=== PATIENT | male | born 1975 | race Hispanic/Latino ===

== ENCOUNTER 2016-06-28 16:19 | Observation (INO) | payer MEDICAID ==
[2016-06-28 16:30] VITALS: BMI 25.0
--- NOTE | 2016-06-28 16:42 | ED PDOC ---
Arrival/HPI - General Historian: Patient - General Chief Complaint: Abnormal Skin Integrity Time Seen by Provider: 06/28/16 16:31 - History of Present Illness Narrative History of Present Illness (Text): 06/28/16 16:38 40yr old male presents today in police custody after running from the police and hopping a fence and falling. pt c/o pain to the anterior chest and right hand. pt states he fell forward from an approximate four foot fence. No loc. denies headache. c/o "bruised feeling" to anterior chest. pt states he did not have any pain or shortness of breath prior to fall. pt states he was running from the police because he had unpaid parking tickets. no abdominal pain. no vomiting. no back or neck pain. no other complaints. (Lily Pulido) Past Medical History - Provider Review Nursing Documentation Reviewed: Yes - Travel History Have you recently traveled outside [place] w/in the past 3 mons?: No - Tetanus Immunization Tetanus Immunization: Unknown - Cardiac Hx Cardiac Disorders: No - Pulmonary Hx Respiratory Disorders: No Hx Asthma: No - Neurological Hx Neurological Disorder: Yes (MR) - HEENT Hx HEENT Disorder: No - Renal Hx Renal Disorder: No - Endocrine/Metabolic Hx Endocrine Disorders: No - Hematological/Oncological Hx Blood Disorders: No - Integumentary Hx Dermatological Disorder: No - Musculoskeletal/Rheumatological Hx Musculoskeletal Disorders: No - Gastrointestinal Hx Gastrointestinal Disorders: No - Genitourinary/Gynecological Hx Genitourinary Disorders: No - Psychiatric Hx Psychophysiologic Disorder: No Hx Depression: No Hx Emotional Abuse: No Hx Physical Abuse: No Hx Substance Use: No (denies) - Anesthesia Hx Anesthesia: No - Suicidal Assessment Feels Threatened In Home Enviroment: No Family/Social History - Physician Review Nursing Documentation Reviewed: Yes Family/Social History: Unknown Family HX Smoking Status: Never Smoked Hx Alcohol Use: No (denies) Hx Substance Use: No (denies) Allergies/Home Meds Allergies/Adverse Reactions: Allergies No Known Allergies Allergy (Verified 06/28/16 16:30) Home Medications: Home Meds Medication Instructions Recorded Confirmed No Known Home Med 06/28/16 06/28/16 Review of Systems - Review of Systems Constitutional: absent: Fatigue, Fevers Respiratory: absent: SOB Cardiovascular: Chest Pain. absent: Palpitations Gastrointestinal: absent: Abdominal Pain, Nausea, Vomiting Genitourinary Male: absent: Dysuria Musculoskeletal: absent: Arthralgias, Back Pain, Neck Pain Skin: Laceration (palm of right hand) Neurological: absent: Headache, Dizziness Physical Exam Vital Signs Reviewed: Yes Temperature: Afebrile Blood Pressure: Hypertensive Pulse: Tachycardic Respiratory Rate: Normal Appearance: Positive for: Well-Appearing, Non-Toxic, Comfortable Pain Distress: None Mental Status: Positive for: Alert and Oriented X 3 - Systems Exam Head: Present: Atraumatic. No: Tenderness, Contusion Pupils: Present: PERRL Extroacular Muscles: Present: EOMI Mouth: Present: Moist Mucous Membranes Neck: Present: Normal Range of Motion. No: MIDLINE TENDERNESS, Paraspinal Tenderness Respiratory/Chest: Present: Clear to Auscultation, Good Air Exchange. No: Respiratory Distress, Accessory Muscle Use, Tender to Palpation Cardiovascular: Present: Regular Rate and Rhythm, Normal S1, S2. No: Murmurs Abdomen: No: Tenderness, Distention, Peritoneal Signs, Rebound, Guarding Back: Present: Normal Inspection. No: Midline Tenderness, Paraspinal Tenderness Upper Extremity: Present: Normal ROM, NORMAL PULSES, Neurovascularly Intact, Capillary Refill < 2s, Other (there is a 0.5cm linear superifical laceration to the palm of the hand over the area of the 2nd and 3rd metacarpals. no active bleeding.). No: Tenderness, Swelling, Erythema, Deformity Lower Extremity: Present: Normal ROM, Neurovascularly Intact Neurological: Present: GCS=15, Speech Normal, Motor Func Grossly Intact, Normal Sensory Function, Gait Normal Skin: Present: Warm, Dry Psychiatric: Present: Alert, Oriented x 3 Vital Signs Temp Pulse Resp BP Pulse Ox 06/28/16 21:54 72 16 129/80 96 06/28/16 18:39 98 F 79 20 143/91 H 98 06/28/16 18:00 94 H 18 123/80 97 06/28/16 17:57 96 H 06/28/16 16:35 99.1 F 130 H 18 130/87 97 06/28/16 16:30 99.1 F 132 H 16 150/87 97 Medical Decision Making ED Course and Treatment: I was available for consultation during PA evaluation. The chart was reviewed by me, and I agree with disposition. The documented history was done by the physician business account specialist. The documented physical exam was done by the physician business account specialist. The documented procedures were done by the physician business account specialist. ( Bentley Casey) 06/28/16 16:47 40yr old male with right hand pain/laceration and anterior chest pain s/p fall from fence. ekg; sinus tachycardia at 114b/m cxr: wnl right hand xray: no fracture, no foreign body. wound irrigated well with high pressure irrigation laceration repair; 2 sutures placed tetanus updated. cbc; wnl cmp; wnl troponin; wnl pt with slight expiratory wheeze; will given duoneb. pt c/o CP; will check 2 sets of troponin slight bump in 2nd troponin; 0.03 ASA GIVEN Po pt reassessment; pt non toxic well appearing; no distress. vitals improving. discussed all results with patient in depth; will admit observational status for CP with exertion; R/o ACS. hx of prior smoker. case discussed with dr. reid and dr. peraza. accepts tele obs admission. impression; chest pain, laceration, hand, tele obs; (Lily Pulido) - RAD Interpretation Radiology Orders: 06/28/16 16:37 CHEST PORTABLE [RAD] Stat 06/28/16 16:44 HAND RIGHT 3 VIEWS [RAD] Stat - Medication Orders Current Medication Orders: Aspirin (Aspirin) 325 mg PO DAILY DAVID Discontinued Medications Albuterol/Ipratropium (Duoneb 3 Mg/0.5 Mg (3 Ml) Ud) 3 ml IH STAT STA Stop: 06/28/16 18:01 Last Admin: 06/28/16 18:05 Dose: 3 ML Lidocaine HCl (Lidocaine 1% (20ml)) Confirm Administered Dose 20 ml .ROUTE .STK- MED ONE Stop: 06/28/16 17:05 Last Admin: 06/28/16 17:24 Dose: 3 ML Tetanus/Reduced Diphtheria/Acell Pertussis (Boostrix Vaccine Inj) 0.5 ml IM .ONCE ONE Stop: 06/28/16 16:44 Last Admin: 06/28/16 17:25 Dose: 0.5 ML MAR Immunization Data Document 06/28/16 17:25 GMI (Rec: 06/28/16 17:29 GMI [id number]) Immunization Data Informed Consent Given Yes Vaccine Lot Number [id number] Site Given Right Deltoid Route Intramuscular Immunization Units ml Procedure: Wound Repair - Procedure Procedure: Wound Repair: laceration, hand - Consent Obtained Consent obtained: Verbal - Performed by Performed by: Mid-level Provider - Indications Indication(s):: Laceration - Location Location:: Right, Volar, Hand Dimensions Length cm: 1cm Depth:: Epidermis - Anesthetic Technique Local/Regional Anesthetic:: Lidocaine 1% (1cc) - Debris Debris:: None - Irrigated Irrigated with ml of normal saline: copious amounts of NS using high pressure irrigation - Complexity Complexity:: Simple (one layer) - Wound repair method Sutures:: # (2), Size (5.0), Type (nylon), Technique (interrupted) - Complications Complications: none - Patient tolerated procedure Patient Tolerated Procedure:: Well ED OBSERVATION Date of observation admission: 06/28/16 Time of observation admission: 17:05 - Observation admission statement Patient is being placed in observation because:: pt with chest pain (Lily Pulido) - Goals of Observation Goals of observation are:: improvement in symptoms (Lily Pulido) - Progress Note Progress Note: 06/28/16 18:00: pt with slight cough in er. slight expiratory wheezing noted. will add duoneb 06/28/16 20:00 pt resting comfortably; vitals stable; pt denies any complaints. awaiting 2nd set of troponins. 06/28/16 22:24 pt with slight bump in troponin; will admit tele obs. with dry charge process attendant consult. (Lily Pulido) Disposition/Present on Arrival - Present on Arrival Any Indicators Present on Arrival: No History of DVT/PE: No History of Uncontrolled Diabetes: No Urinary Catheter: No History of Decub. Ulcer: No History Surgical Site Infection Following: None - Disposition Have Diagnosis and Disposition been Completed?: Yes Disposition Time: 22:25 Patient Plan: Discharge - Disposition Diagnosis: Chest pain Disposition: HOSPITALIZED Condition: GOOD
[2016-06-28] MEDS ORDERED: TDAP Vaccine 0.5 mL Syr IM ONE (16:43)
[2016-06-28] MEDS ORDERED: Lidocaine 1% Inj (20ml) ONE (17:04)
[2016-06-28 17:27] LABS: ADD MANUAL DIFF? NO
--- NOTE | 2016-06-28 17:27 | RAD ---
PROCEDURE: Right Hand Radiographs. HISTORY: fall/laceration COMPARISON: None. FINDINGS: BONES: Normal. No fracture. JOINTS: Normal. No osteoarthritic changes. SOFT TISSUES: Normal. OTHER FINDINGS: None. IMPRESSION: Normal right hand radiographs.
--- NOTE | 2016-06-28 17:29 | RAD ---
HISTORY: fall COMPARISON: 10/18/2013 FINDINGS: LUNGS: No active pulmonary disease. PLEURA: No significant pleural effusion identified, no pneumothorax apparent. CARDIOVASCULAR: Normal. OSSEOUS STRUCTURES: No significant abnormalities. VISUALIZED UPPER ABDOMEN: Normal. OTHER FINDINGS: None. IMPRESSION: No active disease.
[2016-06-28 17:36] LABS: BASO # 0.04 K/mm3 (0.0-2.0); BASO % 0.4 % (0.0-3.0); EOS # 0.1 (0.0-0.7); EOS % 1.2 % (1.5-5.0); GRAN # 8.68 (1.4-6.5); GRAN % 83.8 % (50.0-68.0); HEMATOCRIT 43.3 % (42.0-52.0); LYMPH % 9.8 % (22.0-35.0); MEAN CELL VOLUME 84.9 fL (80.0-105.0); MEAN CORPUSCULAR HGB CONC 35.3 g/dl (31.0-37.0); MEAN PLATELET VOLUME 9.4 fl (7.0-11.0); MONO # 0.5 (0.1-0.6); MONO % 4.8 % (1.0-6.0); PLATELET COUNT 191 10^3/uL (120.0-450.0); RED CELL DISTRIBUTION WIDTH 12.9 % (11.5-14.5); WHITE BLOOD COUNT 10.4 10^3/ul (4.5-11.0)
[2016-06-28 17:40] LABS: ALB/GLOB RATIO 1.5 (1.1-1.8); ALKALINE PHOSPHATASE 41 U/L (38-133); ALT/SGPT 50 U/L (7-56); AST/SGOT 41 U/L (15-59); BILIRUBIN,TOTAL 2.1 mg/dL (0.2-1.3); BLOOD UREA NITROGEN 17 mg/dL (7-21); CALCIUM 9.3 mg/dL (8.4-10.5); CARBON DIOXIDE 23 mmol/L (21-33); CHLORIDE 103 mmol/L (98-107); GFR AFRICAN-AMERICAN > 60; GLUCOSE,RANDOM 88 mg/dL (70-110); POTASSIUM 4.1 mmol/L (3.6-5.0); SODIUM 139 mmol/L (132-148); TOTAL PROTEIN 7.7 g/dL (5.8-8.3)
[2016-06-28] MEDS ORDERED: Albuterol-Ipratrop 3 mg / 0.5 (3 ml) UD IH STA (18:00)
[2016-06-28 18:03] LABS: TROPONIN I < 0.01 ng/mL
--- NOTE | 2016-06-28 22:27 | CP.PCM.HP ---
<Alonzo Fletcher - Last Filed: 06/28/16 22:23> History of Present Illness - History of Present Illness History of Present Illness: This is a 40 yo male with no past medical hx presenting with chief complaint chest pain x 1 day. He was pulled over by police. They found out he had suspended license. He left car and ran from police. While he was running, he began to feel chest pain. Substernal, no radiation, 6/10. Never felt this way before. Pain comes and goes. Not present at time of evaluation. Nothing makes it better or worse. Reproducible with palpation. Staying same, pressure sensation. Pt fell as he was running and hit his head and his right hand. Denies LOC. Denies fevers, chills, syncope, vomiting, diarrhea, urinary sx, bowel sx. PMH: None PSH: None Allergies: NKDA FH: Maternal aunt- [place]- age unknown at dx Home meds: none Social hx: Denies smoking. Social drinker. Past hx of cannabis use. Lives in [place] with GF. Does not work. Present on Admission - Present on Admission Any Indicators Present on Admission: No History of DVT/PE: No History of Uncontrolled Diabetes: No Urinary Catheter: No Decubitus Ulcer Present: No Review of Systems - Review of Systems All systems: reviewed and no additional remarkable complaints except Review of Systems: Negative except as stated in HPI. Past Patient History - Tetanus Immunizations Tetanus Immunization: Unknown - Past Medical History & Family History Past Medical History?: Yes Pertinent Family History: Maternal aunt - [place] - Past Social History Smoking Status: Former Smoker Chewing Tobacco Use: No Cigar Use: No Alcohol: Social Drugs: Cannabis Home Situation {Lives}: With Family Domestic Violence: Negative - CARDIAC Hx Cardiac Disorders: No - PULMONARY Hx Respiratory Disorders: No Hx Asthma: No - NEUROLOGICAL Hx Neurological Disorder: Yes (MR) - HEENT Hx HEENT Problems: No - RENAL Hx Chronic Kidney Disease: No - ENDOCRINE/METABOLIC Hx Endocrine Disorders: No - HEMATOLOGICAL/ONCOLOGICAL Hx Blood Disorders: No - INTEGUMENTARY Hx Dermatological Problems: No - MUSCULOSKELETAL/RHEUMATOLOGICAL Hx Musculoskeletal Disorders: No - GASTROINTESTINAL Hx Gastrointestinal Disorders: No - GENITOURINARY/GYNECOLOGICAL Hx Genitourinary Disorders: No - PSYCHIATRIC Hx Psychophysiologic Disorder: No Hx Depression: No Hx Emotional Abuse: No Hx Physical Abuse: No Hx Substance Use: No (denies) - SURGICAL HISTORY Hx Surgeries: No - ANESTHESIA Hx Anesthesia: No Meds Allergies/Adverse Reactions: Allergies Allergy/AdvReac Type Severity Reaction Status Date / Time No Known Allergies Allergy Verified 06/28/16 16:30 Physical Exam - Constitutional Appears: Non-toxic, No Acute Distress - Head Exam Head Exam: ATRAUMATIC, NORMAL INSPECTION, NORMOCEPHALIC - Eye Exam Eye Exam: EOMI - ENT Exam ENT Exam: Mucous Membranes Moist - Neck Exam Neck exam: Positive for: Normal Inspection - Respiratory Exam Respiratory Exam: Clear to Auscultation Bilateral, NORMAL BREATHING PATTERN - Cardiovascular Exam Cardiovascular Exam: REGULAR RHYTHM, +S1, +S2 Additional comments: CP reproducible to palpation - GI/Abdominal Exam GI & Abdominal Exam: Normal Bowel Sounds, Soft. absent: Tenderness - Extremities Exam Extremities exam: Positive for: normal inspection - Back Exam Back exam: NORMAL INSPECTION - Neurological Exam Neurological exam: Alert, Oriented x3 - Psychiatric Exam Psychiatric exam: Normal Affect, Normal Mood - Skin Skin Exam: Dry, Intact, Normal Color, Warm Results - Vital Signs Recent Vital Signs: Last Vital Signs Temp 98 F 06/28/16 18:39 Pulse 72 06/28/16 21:54 Resp 16 06/28/16 21:54 BP 129/80 06/28/16 21:54 Pulse Ox 96 06/28/16 21:54 - Labs Result Diagrams: 06/28/16 17:20 06/28/16 17:20 Labs: Laboratory Results - last 24 hr 06/28/16 06/28/16 17:20 21:20 WBC 10.4 D RBC 5.10 Hgb 15.3 Hct 43.3 MCV 84.9 MCH 30.0 MCHC 35.3 RDW 12.9 Plt Count 191 MPV 9.4 Gran % 83.8 H Lymph % (Auto) 9.8 L Morehouse % (Auto) 4.8 Eos % (Auto) 1.2 L Baso % (Auto) 0.4 Gran # 8.68 H Lymph # 1.0 L Morehouse # 0.5 Eos # 0.1 Baso # 0.04 Sodium 139 Potassium 4.1 Chloride 103 Carbon Dioxide 23 Anion Gap 17 BUN 17 Creatinine 1.0 Est GFR ( Amer) > 60 Est GFR (Non-Af Amer) > 60 Random Glucose 88 Calcium 9.3 Total Bilirubin 2.1 H AST 41 ALT 50 Alkaline Phosphatase 41 Lactate Dehydrogenase 503 Total Creatine Kinase 87 Troponin I < 0.01 0.03 D Total Protein 7.7 Albumin 4.6 Globulin 3.1 Albumin/Globulin Ratio 1.5 Assessment & Plan - Assessment and Plan (Free Text) Assessment: This is a 40 yo male with no past medical hx presenting with chest pain x 1 day 1. Chest pain, r/o ACS -serial ekgs -serial troponins, first .01, second .03 -CXR negative -asa 81 daily -lipid panel -hgb a1c -mg/phos -urine drug screen pending -pt hemodynamically stable 2. Hand pain -hand x ray negative 3. GI/DVT ppx -protonix daily -SCDs <Kierra Boles - Last Filed: 06/29/16 22:53> Results - Vital Signs Recent Vital Signs: Last Vital Signs Temp 98.5 F 06/29/16 18:00 Pulse 74 06/29/16 18:00 Resp 20 06/29/16 18:00 BP 136/83 06/29/16 18:00 Pulse Ox 96 06/29/16 05:46 - Labs Result Diagrams: 06/29/16 07:42 06/29/16 07:42 Labs: Laboratory Results - last 24 hr 06/28/16 06/28/16 06/29/16 21:20 22:37 07:42 WBC 8.1 D RBC 4.89 Hgb 14.5 Hct 41.7 L MCV 85.3 MCH 29.7 MCHC 34.8 RDW 13.1 Plt Count 167 MPV 9.3 Gran % 67.8 Lymph % (Auto) 21.6 L Morehouse % (Auto) 7.7 H Eos % (Auto) 2.5 Baso % (Auto) 0.4 Gran # 5.50 Lymph # 1.8 Morehouse # 0.6 Eos # 0.2 Baso # 0.03 Sodium 141 Potassium 3.7 Chloride 102 Carbon Dioxide 28 Anion Gap 15 BUN 18 Creatinine 0.9 Est GFR ( Amer) > 60 Est GFR (Non-Af Amer) > 60 Random Glucose 97 Calcium 8.7 Total Bilirubin 3.3 H Direct Bilirubin 0.7 H AST 38 ALT 46 Alkaline Phosphatase 44 Troponin I 0.04 D Total Protein 7.1 Albumin 4.1 Globulin 3.0 Albumin/Globulin Ratio 1.4 Triglycerides 50 Cholesterol 105 L LDL Cholesterol Direct 46 HDL Cholesterol 38 Urine Opiates Screen Negative Urine Methadone Screen Negative Ur Barbiturates Screen Negative Ur Phencyclidine Scrn Negative Ur Amphetamines Screen Negative U Benzodiazepines Scrn Negative U Oth Cocaine Metabols Negative U Cannabinoids Screen Negative 06/29/16 06/29/16 12:25 14:45 WBC RBC Hgb Hct MCV MCH MCHC RDW Plt Count MPV Gran % Lymph % (Auto) Morehouse % (Auto) Eos % (Auto) Baso % (Auto) Gran # Lymph # Morehouse # Eos # Baso # Sodium Potassium Chloride Carbon Dioxide Anion Gap BUN Creatinine Est GFR ( Amer) Est GFR (Non-Af Amer) Random Glucose Calcium Total Bilirubin Direct Bilirubin AST ALT Alkaline Phosphatase Troponin I < 0.01 D < 0.01 Total Protein Albumin Globulin Albumin/Globulin Ratio Triglycerides Cholesterol LDL Cholesterol Direct HDL Cholesterol Urine Opiates Screen Urine Methadone Screen Ur Barbiturates Screen Ur Phencyclidine Scrn Ur Amphetamines Screen U Benzodiazepines Scrn U Oth Cocaine Metabols U Cannabinoids Screen Attending/Attestation - Attestation I have personally seen and examined this patient.: Yes I have fully participated in the care of the patient.: Yes I have reviewed all pertinent clinical information: Yes Notes (Text): 06/29/16 22:53 Patient was seen when he was in PES room in the ER. Agree with history , physical examination ,assessment and plan.
[2016-06-28 22:39] LABS: BILIRUBIN,DIRECT 0.7 mg/dL (0.0-0.4)
[2016-06-29 05:47] VITALS: O2SAT 96
[2016-06-29] MEDS ORDERED: Pantoprazole 40 mg EC Tab PO SCH (06:30)
[2016-06-29 07:44] LABS: ADD MANUAL DIFF? NO
[2016-06-29 07:49] LABS: BASO # 0.03 K/mm3 (0.0-2.0); BASO % 0.4 % (0.0-3.0); EOS # 0.2 (0.0-0.7); EOS % 2.5 % (1.5-5.0); GRAN % 67.8 % (50.0-68.0); HEMATOCRIT 41.7 % (42.0-52.0); LYMPH # 1.8 (1.2-3.4); LYMPH % 21.6 % (22.0-35.0); MEAN CELL VOLUME 85.3 fL (80.0-105.0); MEAN CORPUSCULAR HEMOGLOBIN 29.7 pg (25.0-35.0); MEAN CORPUSCULAR HGB CONC 34.8 g/dl (31.0-37.0); MEAN PLATELET VOLUME 9.3 fl (7.0-11.0); MONO # 0.6 (0.1-0.6); MONO % 7.7 % (1.0-6.0); PLATELET COUNT 167 10^3/uL (120.0-450.0); RED CELL DISTRIBUTION WIDTH 13.1 % (11.5-14.5); WHITE BLOOD COUNT 8.1 10^3/ul (4.5-11.0)
[2016-06-29 08:02] LABS: ALB/GLOB RATIO 1.4 (1.1-1.8); ALKALINE PHOSPHATASE 44 U/L (38-133); ALT/SGPT 46 U/L (7-56); AST/SGOT 38 U/L (15-59); BILIRUBIN,TOTAL 3.3 mg/dL (0.2-1.3); BLOOD UREA NITROGEN 18 mg/dL (7-21); CALCIUM 8.7 mg/dL (8.4-10.5); CARBON DIOXIDE 28 mmol/L (21-33); CHLORIDE 102 mmol/L (98-107); GFR AFRICAN-AMERICAN > 60; GLUCOSE,RANDOM 97 mg/dL (70-110); POTASSIUM 3.7 mmol/L (3.6-5.0); SODIUM 141 mmol/L (132-148); TOTAL PROTEIN 7.1 g/dL (5.8-8.3)
[2016-06-29 08:12] LABS: TROPONIN I 0.04 ng/mL
--- NOTE | 2016-06-29 12:13 | CARD ---
APPROVED REPORT EKG Measurement Heart [id number] NM [id number] <Conclusion> Normal sinus rhythm Early repolarization Normal ECG
--- NOTE | 2016-06-29 12:18 | CARD ---
APPROVED REPORT EKG Measurement Heart [id number] SD [id number] <Conclusion> Sinus tachycardia Otherwise normal ECG
--- NOTE | 2016-06-29 13:08 | CP.PCM.DIS ---
<Kailyn Gale - Last Filed: 07/03/16 02:42> Provider - Provider Date of Admission: 06/28/16 17:04 Attending physician: Surinder Tyson MD Primary care physician: NO PRIMARY CARE PROVIDER Consults: Cardiology Dr. Renee Time Spent in preparation of Discharge (in minutes): 40 Diagnosis - Discharge Diagnosis (1) Chest pain Status: Resolved Hospital Course - Lab Results Lab Results: Most Recent Lab Values WBC 8.1 10^3/ul (4.5-11.0) D 06/29/16 07:42 RBC 4.89 10^6/uL (3.5-6.1) 06/29/16 07:42 Hgb 14.5 gm/dL (14.0-18.0) 06/29/16 07:42 Hct 41.7 % (42.0-52.0) L 06/29/16 07:42 MCV 85.3 fL (80.0-105.0) 06/29/16 07:42 MCH 29.7 pg (25.0-35.0) 06/29/16 07:42 MCHC 34.8 g/dl (31.0-37.0) 06/29/16 07:42 RDW 13.1 % (11.5-14.5) 06/29/16 07:42 Plt Count 167 10^3/uL (120.0-450.0) 06/29/16 07:42 MPV 9.3 fl (7.0-11.0) 06/29/16 07:42 Gran % 67.8 % (50.0-68.0) 06/29/16 07:42 Lymph % (Auto) 21.6 % (22.0-35.0) L 06/29/16 07:42 [place] % (Auto) 7.7 % (1.0-6.0) H 06/29/16 07:42 Eos % (Auto) 2.5 % (1.5-5.0) 06/29/16 07:42 Baso % (Auto) 0.4 % (0.0-3.0) 06/29/16 07:42 Gran # 5.50 (1.4-6.5) 06/29/16 07:42 Lymph # 1.8 (1.2-3.4) 06/29/16 07:42 [place] # 0.6 (0.1-0.6) 06/29/16 07:42 Eos # 0.2 (0.0-0.7) 06/29/16 07:42 Baso # 0.03 K/mm3 (0.0-2.0) 06/29/16 07:42 Sodium 141 mmol/L (132-148) 06/29/16 07:42 Potassium 3.7 mmol/L (3.6-5.0) 06/29/16 07:42 Chloride 102 mmol/L (98-107) 06/29/16 07:42 Carbon Dioxide 28 mmol/L (21-33) 06/29/16 07:42 Anion Gap 15 (10-20) 06/29/16 07:42 BUN 18 mg/dL (7-21) 06/29/16 07:42 Creatinine 0.9 mg/dL (0.5-1.4) 06/29/16 07:42 Est GFR ( Amer) > 60 06/29/16 07:42 Est GFR (Non-Af Amer) > 60 06/29/16 07:42 Random Glucose 97 mg/dL (70-110) 06/29/16 07:42 Calcium 8.7 mg/dL (8.4-10.5) 06/29/16 07:42 Total Bilirubin 3.3 mg/dL (0.2-1.3) H 06/29/16 07:42 Direct Bilirubin 0.7 mg/dL (0.0-0.4) H 06/28/16 21:20 AST 38 U/L (15-59) 06/29/16 07:42 ALT 46 U/L (7-56) 06/29/16 07:42 Alkaline Phosphatase 44 U/L (38-133) 06/29/16 07:42 Lactate Dehydrogenase 503 U/L (333-699) 06/28/16 17:20 Total Creatine Kinase 87 U/L (35-230) 06/28/16 17:20 Troponin I < 0.01 ng/mL D 06/29/16 12:25 Total Protein 7.1 g/dL (5.8-8.3) 06/29/16 07:42 Albumin 4.1 g/dL (3.0-4.8) 06/29/16 07:42 Globulin 3.0 gm/dL 06/29/16 07:42 Albumin/Globulin Ratio 1.4 (1.1-1.8) 06/29/16 07:42 Triglycerides 50 mg/dL (35-160) 06/28/16 21:20 Cholesterol 105 mg/dL (130-200) L 06/28/16 21:20 LDL Cholesterol Direct 46 mg/dL (0-129) 06/28/16 21:20 HDL Cholesterol 38 mg/dL (29-60) 06/28/16 21:20 Urine Opiates Screen Negative (NEGATIVE) 06/28/16 22:37 Urine Methadone Screen Negative (NEGATIVE) 06/28/16 22:37 Ur Barbiturates Screen Negative (NEGATIVE) 06/28/16 22:37 Ur Phencyclidine Scrn Negative (NEGATIVE) 06/28/16 22:37 Ur Amphetamines Screen Negative (NEGATIVE) 06/28/16 22:37 U Benzodiazepines Scrn Negative (NEGATIVE) 06/28/16 22:37 U Oth Cocaine Metabols Negative (NEGATIVE) 06/28/16 22:37 U Cannabinoids Screen Negative (NEGATIVE) 06/28/16 22:37 - Hospital Course Hospital Course: 40 yo male with no past medical hx presenting with chief complaint chest pain x 1 day. He was pulled over by police. They found out he had suspended license. He left car and ran from police. While he was running, he began to feel chest pain. Substernal, no radiation, 6/10. Never felt this way before. Pain comes and goes. Not present at time of evaluation. Nothing makes it better or worse. Reproducible with palpation. Staying same, pressure sensation. Pt fell as he was running and hit his head and his right hand. Denies LOC. Denies fevers, chills, syncope, vomiting, diarrhea, urinary sx, bowel sx. In the ED, patient was found to have troponin of 0.01 and 0.03 on repeat. EKG showed NSR at 68bpm with no ST changes. Right hand laceration repaired with 2 sutures. Patient was admitted for CP r/o ACS due to increase troponin. Upon admission, patient was started on ASA. Overnight patient's chest pain improved. Patient's vitals were stable, troponins remain negative. Cardiology was consulted and suggested that patient does not have ACS. Police at bedside were given note of clearance for incarceration. Upon informing patient of negative results, patient starting complaining of shortness of breath, nausea, coughs and, chest pain. Toradol was given. EKG, troponin were performed and they were negative. At this time, after discussion of all issues, the patient was deemed medically fit for discharge. - Date & Time of H&P Date of H&P: 06/28/16 Time of H&P: 22:23 Discharge Exam - Head Exam Head Exam: ATRAUMATIC, NORMAL INSPECTION, NORMOCEPHALIC - Eye Exam Eye Exam: EOMI, Normal appearance Pupil Exam: NORMAL ACCOMODATION - ENT Exam ENT Exam: Mucous Membranes Moist - Neck Exam Neck exam: Normal Inspection - Respiratory Exam Respiratory Exam: Clear to PA & Lateral, NORMAL BREATHING PATTERN, UNREMARKABLE. absent: Respiratory Distress - Cardiovascular Exam Cardiovascular Exam: Tachycardia, RRR, +S1, +S2 - GI/Abdominal Exam GI & Abdominal Exam: Normal Bowel Sounds, Soft. absent: Tenderness - Extremities Exam Extremities exam: normal inspection - Back Exam Back exam: NORMAL INSPECTION - Neurological Exam Neurological exam: Alert, Oriented x3 - Psychiatric Exam Psychiatric exam: Normal Affect, Normal Mood - Skin Skin Exam: Dry, Intact, Normal Color, Warm Discharge Plan - Follow Up Plan Condition: GOOD Disposition: RELEASED IN POLICE CUSTODY Instructions: Chest Pain (ED), Chest Pain (DC), Chest Pain (GEN) Additional Instructions: Patient was instructed to follow up with a medical provider Patient was evaluated by salon assistant and cardiology workup has been negative Patient is medically cleared for incarceration Referrals: PCP,NO [Primary Care Provider] - <Surinder Tyson MD - Last Filed: 07/07/16 14:47> Provider - Provider Date of Admission: 06/28/16 17:04 Attending physician: Surinder Tyson MD Primary care physician: KAYKAY PRIMARY CARE PROVIDER Hospital Course - Lab Results Lab Results: Most Recent Lab Values WBC 8.1 10^3/ul (4.5-11.0) D 06/29/16 07:42 RBC 4.89 10^6/uL (3.5-6.1) 06/29/16 07:42 Hgb 14.5 gm/dL (14.0-18.0) 06/29/16 07:42 Hct 41.7 % (42.0-52.0) L 06/29/16 07:42 MCV 85.3 fL (80.0-105.0) 06/29/16 07:42 MCH 29.7 pg (25.0-35.0) 06/29/16 07:42 MCHC 34.8 g/dl (31.0-37.0) 06/29/16 07:42 RDW 13.1 % (11.5-14.5) 06/29/16 07:42 Plt Count 167 10^3/uL (120.0-450.0) 06/29/16 07:42 MPV 9.3 fl (7.0-11.0) 06/29/16 07:42 Gran % 67.8 % (50.0-68.0) 06/29/16 07:42 Lymph % (Auto) 21.6 % (22.0-35.0) L 06/29/16 07:42 [place] % (Auto) 7.7 % (1.0-6.0) H 06/29/16 07:42 Eos % (Auto) 2.5 % (1.5-5.0) 06/29/16 07:42 Baso % (Auto) 0.4 % (0.0-3.0) 06/29/16 07:42 Gran # 5.50 (1.4-6.5) 06/29/16 07:42 Lymph # 1.8 (1.2-3.4) 06/29/16 07:42 [place] # 0.6 (0.1-0.6) 06/29/16 07:42 Eos # 0.2 (0.0-0.7) 06/29/16 07:42 Baso # 0.03 K/mm3 (0.0-2.0) 06/29/16 07:42 Sodium 141 mmol/L (132-148) 06/29/16 07:42 Potassium 3.7 mmol/L (3.6-5.0) 06/29/16 07:42 Chloride 102 mmol/L (98-107) 06/29/16 07:42 Carbon Dioxide 28 mmol/L (21-33) 06/29/16 07:42 Anion Gap 15 (10-20) 06/29/16 07:42 BUN 18 mg/dL (7-21) 06/29/16 07:42 Creatinine 0.9 mg/dL (0.5-1.4) 06/29/16 07:42 Est GFR ( Amer) > 60 06/29/16 07:42 Est GFR (Non-Af Amer) > 60 06/29/16 07:42 Random Glucose 97 mg/dL (70-110) 06/29/16 07:42 Hemoglobin A1c 5.0 % (4.2-6.5) 06/28/16 21:20 Calcium 8.7 mg/dL (8.4-10.5) 06/29/16 07:42 Total Bilirubin 3.3 mg/dL (0.2-1.3) H 06/29/16 07:42 Direct Bilirubin 0.7 mg/dL (0.0-0.4) H 06/28/16 21:20 AST 38 U/L (15-59) 06/29/16 07:42 ALT 46 U/L (7-56) 06/29/16 07:42 Alkaline Phosphatase 44 U/L (38-133) 06/29/16 07:42 Lactate Dehydrogenase 503 U/L (333-699) 06/28/16 17:20 Total Creatine Kinase 87 U/L (35-230) 06/28/16 17:20 Troponin I < 0.01 ng/mL 06/29/16 14:45 Total Protein 7.1 g/dL (5.8-8.3) 06/29/16 07:42 Albumin 4.1 g/dL (3.0-4.8) 06/29/16 07:42 Globulin 3.0 gm/dL 06/29/16 07:42 Albumin/Globulin Ratio 1.4 (1.1-1.8) 06/29/16 07:42 Triglycerides 50 mg/dL (35-160) 06/28/16 21:20 Cholesterol 105 mg/dL (130-200) L 06/28/16 21:20 LDL Cholesterol Direct 46 mg/dL (0-129) 06/28/16 21:20 HDL Cholesterol 38 mg/dL (29-60) 06/28/16 21:20 Urine Opiates Screen Negative (NEGATIVE) 06/28/16 22:37 Urine Methadone Screen Negative (NEGATIVE) 06/28/16 22:37 Ur Barbiturates Screen Negative (NEGATIVE) 06/28/16 22:37 Ur Phencyclidine Scrn Negative (NEGATIVE) 06/28/16 22:37 Ur Amphetamines Screen Negative (NEGATIVE) 06/28/16 22:37 U Benzodiazepines Scrn Negative (NEGATIVE) 06/28/16 22:37 U Oth Cocaine Metabols Negative (NEGATIVE) 06/28/16 22:37 U Cannabinoids Screen Negative (NEGATIVE) 06/28/16 22:37 Attending/Attestation - Attestation I have personally seen and examined this patient.: Yes I have fully participated in the care of the patient.: Yes I have reviewed all pertinent clinical information, including history, physical exam and plan: Yes Notes (Text): Patient was seen and examined with general medical practitioner.Agreed with assessment and plan. 40 yo male with no significant PMH with atypical chest pain, has chest wall tendernes, EKG no ischemic changes, serial troponins are normal.Patient was evaluated by cardiology, no further work up is needed.Patient will be discharged from hospital and will follow up with [facility] clinic once released from Police custody or can follow up with doctor in long-term, Management plan was discussed in detail with patient. Education was provided.
--- NOTE | 2016-06-29 18:33 | CON ---
DATE: 06/29/2016 REASON FOR CONSULTATION: Cardiac evaluation for chest pain, cough, in police custody. BRIEF CLINICAL HISTORY: This is a 40-year-old male with no significant past medical history who says he was in police custody and was chased. After that the patient developed chest pain and cough. Wa s brought here under police custody. Denies any prior episodes of chest pain. No dyspnea on exerti on. 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 PAST MEDICAL HISTORY: Nothing significant. CURRENT MEDICATIONS: . FAMILY HISTORY: No history of coronary artery disease. PAST SURGICAL HISTORY: No surgical history. SOCIAL HISTORY: Denies smoking, denies any history of alcohol abuse, denies any history of substance abuse. REVIEW OF SYSTEMS: As per HPI. PHYSICAL EXAMINATION: VITAL SIGNS: Temperature afebrile, heart rate 72, blood pressure 130/80. HEENT: PERRLA. Extraocular muscles intact. NECK: Supple. No carotid bruits. No thyromegaly. CHEST: Clear to auscultation. HEART: S1, S2 regular. ABDOMEN: Soft. EXTREMITIES: Clubbing and cyanosis negative. LABORATORY DATA: Blood workup as follows: WBC 8.1, hemoglobin 14.5, hematocrit 41.7, platelet count 167. Chemistry shows sodium 141, potassium 3.7, chloride 102, carbon dioxide 28, anion gap of 15, B UN 18, creatinine 0.9, calcium 8.7, total bilirubin 3.3. Troponin 0.01. IMPRESSION: Hyperbilirubinemia, cough and troponin negative. No evidence of acute myocardial infarc tion. EKG showed normal sinus, a normal EKG. No evidence of acute myocardial infarction, no evidenc e of acute coronary syndrome. is stable. From a cardiology point of view, the patient is stab le. No further cardiac workup is planned at this time. We will follow with you. Thank you, Dr. Tim, for providing us the opportunity in taking care of the patient. The patient is okay to discharge from a cardiac point of view. Surinder Renee MD cc: [id number] TT: 06/29/2016 18:33:12 Confirmation # [id number] Dictation # [id number]
[2016-06-29 19:15] VITALS: BP 136/83; PULSE 74; RESP 20; TEMP 98.5
--- NOTE | 2016-06-30 16:34 | CARD ---
APPROVED REPORT EKG Measurement Heart [id number] <Conclusion> Normal sinus rhythm Normal ECG
== END 2016-06-29 20:00 | disposition home or self-care (01) ==
LOC: ED 16:19 → EROBSV 17:04 → ERH 22:21 → 2RNO 22:40
PROVIDERS: ADMIT Internal Medicine; ATTEND Internal Medicine
DX: R07.9 Chest pain, unspecified (principal); R05 Cough; M79.641 Pain in right hand; S61.411A Laceration without foreign body of right hand, initial encounter; W19.XXXA Unspecified fall, initial encounter; Y93.02 Activity, running; Z23 Encounter for immunization; E80.6 Other disorders of bilirubin metabolism
CPT/HCPCS: 12001; 36415; 71010; 73130; 80053; 80061; 80324; 80345; 80346; 80349; 80353; 80358; 80361; 82248; 82550; 83036; 83615; 83992; 84484; 85025; 90471; 90715; 93005; 99285; G0378

== ENCOUNTER 2016-07-04 02:52 | Emergency (ER) | payer MEDICAID ==
--- NOTE | 2016-07-04 03:38 | ED PDOC ---
Arrival/HPI - General Historian: Patient - History of Present Illness Time/Duration: > week Symptom Course: Improving <Kailyn Gale - Last Filed: 07/04/16 03:55> - History of Present Illness Symptom Onset: Sudden Severity Level: Mild <Lex Elliott - Last Filed: 07/04/16 04:22> - General Chief Complaint: Wound Check Time Seen by Provider: 07/04/16 03:01 - History of Present Illness Narrative History of Present Illness (Text): 07/04/16 03:31 40 year old male with no significant past medical history presents to [facility] ED to have his left palm suture removed. Patient sustain a 2 cm laceration in his left palmar surface on 06/28/16. Patient came to the ED and had 2 sutures placed. Patient does not have any current complaints. Denies having headache, fever, chills, shortness of breath, chest pain, nausea, vomiting, constipation or diarrhea. (Kailyn Gale) Past Medical History - Provider Review Nursing Documentation Reviewed: Yes - Tetanus Immunization Tetanus Immunization: Unknown - Cardiac Hx Cardiac Disorders: No - Pulmonary Hx Respiratory Disorders: No Hx Asthma: No - Neurological Hx Neurological Disorder: Yes (MR) - HEENT Hx HEENT Disorder: No - Renal Hx Renal Disorder: No - Endocrine/Metabolic Hx Endocrine Disorders: No - Hematological/Oncological Hx Blood Disorders: No - Integumentary Hx Dermatological Disorder: No - Musculoskeletal/Rheumatological Hx Musculoskeletal Disorders: No - Gastrointestinal Hx Gastrointestinal Disorders: No - Genitourinary/Gynecological Hx Genitourinary Disorders: No - Psychiatric Hx Psychophysiologic Disorder: No Hx Depression: No Hx Emotional Abuse: No Hx Physical Abuse: No Hx Substance Use: No (denies) - Anesthesia Hx Anesthesia: No - Suicidal Assessment Feels Threatened In Home Enviroment: No <Kailyn Gale - Last Filed: 07/04/16 03:55> Family/Social History - Physician Review Nursing Documentation Reviewed: Yes Family/Social History: No Known Family HX Smoking Status: Never Smoked Hx Alcohol Use: No (denies) Hx Substance Use: No (denies) <Kailyn Gale - Last Filed: 07/04/16 03:55> Allergies/Home Meds <Kailyn Gale - Last Filed: 07/04/16 03:55> <Lex Elliott - Last Filed: 07/04/16 04:22> Allergies/Adverse Reactions: Allergies No Known Allergies Allergy (Verified 06/28/16 16:30) Home Medications: Home Meds Medication Instructions Recorded Confirmed No Known Home Med 06/28/16 06/28/16 Review of Systems - Physician Review All systems were reviewed & negative as marked: Yes - Review of Systems Constitutional: Normal. absent: Fatigue, Weight Change, Fevers Eyes: Normal. absent: Vision Changes ENT: Normal Respiratory: Normal. absent: SOB, Cough, Sputum Cardiovascular: Normal. absent: Chest Pain, Palpitations, Syncope Gastrointestinal: Normal. absent: Constipation, Diarrhea, Nausea, Vomiting, Anorexia Musculoskeletal: Normal. absent: Back Pain Skin: Other (suture on left hand) Neurological: Normal. absent: Headache, Dizziness Endocrine: Normal. absent: Diaphoresis, Polyuria Hemo/Lymphatic: Normal. absent: Adenopathy, Easy Bleeding, Easy Bruising Psychiatric: Normal. absent: Anxiety, Depression, Suicidal Ideation <Kailyn Gale - Last Filed: 07/04/16 03:55> Physical Exam Vital Signs Reviewed: Yes Temperature: Afebrile Blood Pressure: Normal Pulse: Regular Respiratory Rate: Normal Appearance: Positive for: Well-Appearing, Non-Toxic, Comfortable Pain Distress: None Mental Status: Positive for: Alert and Oriented X 3 - Systems Exam Head: Present: Atraumatic, Normocephalic Pupils: Present: PERRL Extroacular Muscles: Present: EOMI Conjunctiva: Present: Normal Mouth: Present: Moist Mucous Membranes Neck: Present: Normal Range of Motion Respiratory/Chest: Present: Clear to Auscultation, Good Air Exchange. No: Respiratory Distress, Accessory Muscle Use Cardiovascular: Present: Regular Rate and Rhythm, Normal S1, S2. No: Murmurs Abdomen: Present: Normal Bowel Sounds. No: Tenderness, Distention, Peritoneal Signs Back: Present: Normal Inspection Upper Extremity: Present: NORMAL PULSES. No: Normal Inspection (2cm healing wound with 2 sutures placed on left palmar surface. Clean, Dry, no signs of infection), Cyanosis, Edema Lower Extremity: Present: Normal Inspection. No: Edema Neurological: Present: GCS=15, CN II-XII Intact, Speech Normal Skin: Present: Warm, Dry, Normal Color. No: Rashes Psychiatric: Present: Alert, Oriented x 3, Normal Insight, Normal Concentration <Kailyn Gale - Last Filed: 07/04/16 03:55> Vital Signs Temp Pulse Resp BP Pulse Ox 07/04/16 04:16 98.6 F 70 17 128/70 100 07/04/16 02:55 97.5 F L 66 19 130/76 99 Medical Decision Making <Kailyn Gale - Last Filed: 07/04/16 03:55> <Lex Elliott - Last Filed: 07/04/16 04:22> ED Course and Treatment: 07/04/16 03:43 -sutures removed without complications -Bacitracin and band-aid applied -Reassess 07/04/16 03:50 -Patient has no complaints (Kailyn Gale) 07/04/16 04:20 Patient seen and evaluated with resident. Agree with HPI, clinical findings, plan and treatment. Patient is a 40 year old male who presents to the emergency department for suture removal on left palm which was placed on 06/28/16. The 2cm healing wound with no signs of infection. Sutures removed without any complications. Patient discharged home after Bacitracin and band-aid application. (Lex Elliott) <Kailyn Gale - Last Filed: 07/04/16 03:55> - PA / CONSTRUCTION PROJECT MANAGER / Resident Statement / has reviewed & agrees with the documentation as recorded. / has examined the patient and agrees with the treatment plan. <Lex Elliott - Last Filed: 07/04/16 04:22> - Scribe Statement Judy Levy Provider Scribe Attestation: All medical record entries made by the Scribe were at my direction and personally dictated by me. I have reviewed the chart and agree that the record accurately reflects my personal performance of the history, physical exam, medical decision making, and the department course for this patient. I have also personally directed, reviewed, and agree with the discharge instructions and disposition. (Lex Elliott) Disposition/Present on Arrival - Present on Arrival Any Indicators Present on Arrival: No History of DVT/PE: No History of Uncontrolled Diabetes: No Urinary Catheter: No History of Decub. Ulcer: No History Surgical Site Infection Following: None - Disposition Have Diagnosis and Disposition been Completed?: Yes Disposition Time: 03:56 <Kailyn Gale - Last Filed: 07/04/16 03:55> <Lex Elliott - Last Filed: 07/04/16 04:22> - Disposition Diagnosis: Visit for suture removal Disposition: HOME/ ROUTINE Condition: GOOD Discharge Instructions (ExitCare): Stitches Removal (ED)
[2016-07-04 04:17] VITALS: BP 128/70; PULSE 70; RESP 17; TEMP 98.6; O2SAT 100
== END 2016-07-04 04:17 | disposition home or self-care (01) ==
LOC: ED 02:52
DX: Z48.02 Encounter for removal of sutures (principal)

== ENCOUNTER 2016-11-13 04:24 | Emergency (ER) | payer MEDICAID ==
[2016-11-13 04:35] VITALS: BP 141/89; PULSE 60; TEMP 98.4; O2SAT 99
[2016-11-13 04:36] VITALS: RESP 18
--- NOTE | 2016-11-13 04:45 | ED PDOC ---
Arrival/HPI - General Chief Complaint: Dental Pain Time Seen by Provider: 11/13/16 04:38 Historian: Patient - History of Present Illness Narrative History of Present Illness (Text): 11/13/16 04:45 Renny Garcia is a 41 year old male who presents to the Emergency department complaining of dental pain. Patient reports he has been experiencing right lower molar pain after cracking the filling yesterday. Patient denies any fever, chills, sore throat, headache, or any other complaints. Time/Duration: Other (yesterday) Symptom Onset: Gradual Symptom Course: Unchanged Activities at Onset: Light Context: Home Past Medical History - Provider Review Nursing Documentation Reviewed: Yes - Tetanus Immunization Tetanus Immunization: Unknown - Cardiac Hx Cardiac Disorders: No - Pulmonary Hx Respiratory Disorders: No Hx Asthma: No - Neurological Hx Neurological Disorder: Yes (MR) - HEENT Hx HEENT Disorder: No - Renal Hx Renal Disorder: No - Endocrine/Metabolic Hx Endocrine Disorders: No - Hematological/Oncological Hx Blood Disorders: No - Integumentary Hx Dermatological Disorder: No - Musculoskeletal/Rheumatological Hx Musculoskeletal Disorders: No - Gastrointestinal Hx Gastrointestinal Disorders: No - Genitourinary/Gynecological Hx Genitourinary Disorders: No - Psychiatric Hx Psychophysiologic Disorder: No Hx Depression: No Hx Emotional Abuse: No Hx Physical Abuse: No Hx Substance Use: No (denies) - Anesthesia Hx Anesthesia: No - Suicidal Assessment Feels Threatened In Home Enviroment: No Family/Social History - Physician Review Nursing Documentation Reviewed: Yes Family/Social History: Unknown Family HX Smoking Status: Never Smoked Hx Alcohol Use: No (denies) Hx Substance Use: No (denies) Allergies/Home Meds Allergies/Adverse Reactions: Allergies No Known Allergies Allergy (Verified 11/13/16 04:35) Review of Systems - Physician Review All systems were reviewed & negative as marked: Yes - Review of Systems Constitutional: Normal. absent: Fevers Eyes: Normal ENT: Other (+right lower molar pain) Respiratory: Normal. absent: SOB, Cough Cardiovascular: Normal. absent: Chest Pain Gastrointestinal: Normal. absent: Abdominal Pain, Diarrhea, Nausea, Vomiting Genitourinary Male: Normal. absent: Dysuria, Frequency, Hematuria, Urinary Output Changes Musculoskeletal: Normal. absent: Back Pain, Neck Pain Skin: Normal. absent: Rash Neurological: Normal. absent: Headache, Dizziness Endocrine: Normal Hemo/Lymphatic: Normal Psychiatric: Normal Physical Exam Vital Signs Reviewed: Yes Vital Signs Temp Pulse Resp BP Pulse Ox 11/13/16 04:35 98.4 F 60 18 141/89 99 11/13/16 04:31 98.4 F 60 20 141/89 99 Temperature: Afebrile Blood Pressure: Normal Pulse: Regular Respiratory Rate: Normal Appearance: Positive for: Well-Appearing, Non-Toxic, Comfortable Pain Distress: None Mental Status: Positive for: Alert and Oriented X 3 - Systems Exam Head: Present: Atraumatic, Normocephalic Pupils: Present: PERRL Extroacular Muscles: Present: EOMI Conjunctiva: Present: Normal Mouth: Present: Moist Mucous Membranes, Other (Partial loss of amalgam to right lower posterior molar) Neck: Present: Normal Range of Motion Respiratory/Chest: Present: Clear to Auscultation, Good Air Exchange. No: Respiratory Distress, Accessory Muscle Use Cardiovascular: Present: Regular Rate and Rhythm, Normal S1, S2. No: Murmurs Neurological: Present: GCS=15, CN II-XII Intact, Speech Normal Skin: Present: Warm, Dry, Normal Color. No: Rashes Psychiatric: Present: Alert, Oriented x 3, Normal Insight, Normal Concentration Medical Decision Making ED Course and Treatment: 11/13/16 04:45 Impression: 41 year old male complaining of right lower dental pain since yesterday. Differential Diagnosis included but are not limited to: dental pain Plan: -- Motrin -- Reassess and disposition Progress Notes: 11/13/16 05:04 On reevaluation the patient feels better and is in no acute distress. I have discussed the results and plan with the patient, who expresses understanding. Patient given the opportunity to ask question, all questions were answered and there is agreement with the plan to discharge the patient home. Patient is stable for discharge. Patient was instructed to follow up with dentist/physician /clinic in 1-2 days or return if symptoms persist/worsen or new concerning symptoms arise. - Medication Orders Current Medication Orders: Discontinued Medications Ibuprofen (Motrin Tab) 800 mg PO STAT STA Stop: 11/13/16 04:54 Last Admin: 11/13/16 05:00 Dose: 800 mg - Scribe Statement The provider has reviewed the documentation as recorded by the Polina Floyd Provider Scribe Attestation: All medical record entries made by the Scribe were at my direction and personally dictated by me. I have reviewed the chart and agree that the record accurately reflects my personal performance of the history, physical exam, medical decision making, and the department course for this patient. I have also personally directed, reviewed, and agree with the discharge instructions and disposition. Disposition/Present on Arrival - Present on Arrival Any Indicators Present on Arrival: No History of DVT/PE: No History of Uncontrolled Diabetes: No Urinary Catheter: No History of Decub. Ulcer: No History Surgical Site Infection Following: None - Disposition Have Diagnosis and Disposition been Completed?: Yes Diagnosis: Toothache Disposition: HOME/ ROUTINE Disposition Time: 05:04 Patient Plan: Discharge Patient Problems: Current Active Problems Problem Status Onset Toothache Acute Condition: GOOD Discharge Instructions (ExitCare): Toothache (ED) Additional Instructions: Take meds as prescribed/Avoid hot or cold liquids/follow up with your dentist this week Prescriptions: Ibuprofen [Motrin] 600 mg PO Q6 PRN #16 tab PRN Reason: Pain, Moderate (4-7) Forms: [facility] (Frisian)
== END 2016-11-13 05:19 | disposition home or self-care (01) ==
LOC: ED 04:24
DX: K08.89 Other specified disorders of teeth and supporting structures (principal)

== ENCOUNTER 2016-11-20 00:29 | Emergency (ER) | payer MEDICAID ==
[2016-11-20] MEDS ORDERED: Sucralfate 1 gm/10 ml Oral Susp UD PO STA (00:41)
[2016-11-20 00:42] VITALS: BP 123/69; PULSE 52; RESP 18; TEMP 98; O2SAT 98
--- NOTE | 2016-11-20 00:45 | ED PDOC ---
Arrival/HPI - General Chief Complaint: Dental Pain Time Seen by Provider: 11/20/16 00:35 Historian: Patient - History of Present Illness Narrative History of Present Illness (Text): 11/20/16 00:42 This 41 yo male presents to this ED c/o lip pain x 1 day. Patient stated he felt pain after dental procedure this morning. Denies fever, toothache, sore throat, or dysphagia. Time/Duration: Other (see hpi) Context: Home Past Medical History - Provider Review Nursing Documentation Reviewed: Yes - Tetanus Immunization Tetanus Immunization: Unknown - Cardiac Hx Cardiac Disorders: No - Pulmonary Hx Respiratory Disorders: No Hx Asthma: No - Neurological Hx Neurological Disorder: Yes (MR) - HEENT Hx HEENT Disorder: No - Renal Hx Renal Disorder: No - Endocrine/Metabolic Hx Endocrine Disorders: No - Hematological/Oncological Hx Blood Disorders: No - Integumentary Hx Dermatological Disorder: No - Musculoskeletal/Rheumatological Hx Musculoskeletal Disorders: No - Gastrointestinal Hx Gastrointestinal Disorders: No - Genitourinary/Gynecological Hx Genitourinary Disorders: No - Psychiatric Hx Psychophysiologic Disorder: No Hx Depression: No Hx Emotional Abuse: No Hx Physical Abuse: No Hx Substance Use: No (denies) - Anesthesia Hx Anesthesia: No - Suicidal Assessment Feels Threatened In Home Enviroment: No Family/Social History - Physician Review Nursing Documentation Reviewed: Yes Family/Social History: Other (non-contributory) Smoking Status: Never Smoked Hx Alcohol Use: No (denies) Hx Substance Use: No (denies) Allergies/Home Meds Allergies/Adverse Reactions: Allergies No Known Allergies Allergy (Verified 11/13/16 04:35) Review of Systems - Review of Systems Constitutional: Normal. absent: Fatigue, Weight Change, Fevers Eyes: Normal ENT: Other (see hpi). absent: Sore Throat, Rhinorrhea, Epistaxis Respiratory: Normal. absent: SOB, Cough, Sputum, Wheezing Cardiovascular: Normal Gastrointestinal: Normal. absent: Abdominal Pain, Nausea, Vomiting Genitourinary Male: Normal Musculoskeletal: Normal Skin: Normal Neurological: Normal. absent: Headache, Dizziness, Focal Weakness, Gait Changes , Speech Changes, Facial Droop, Disequilibrium Endocrine: Normal Hemo/Lymphatic: Normal Psychiatric: Normal Physical Exam Vital Signs Temp Pulse Resp BP Pulse Ox 11/20/16 00:41 98.0 F 52 L 18 123/69 98 Temperature: Afebrile Blood Pressure: Normal Pulse: Regular Respiratory Rate: Normal Appearance: Positive for: Well-Appearing, Non-Toxic, Comfortable Pain Distress: None Mental Status: Positive for: Alert and Oriented X 3 - Systems Exam Head: Present: Atraumatic, Normocephalic Pupils: Present: PERRL Extroacular Muscles: Present: EOMI Conjunctiva: Present: Normal Mouth: Present: Moist Mucous Membranes, Normal Tounge, Normal Teeth, Other ((+) 5-6 mm aphthous ulcer, located inner lower lip near gum.) Neck: Present: Normal Range of Motion, Trachea Midline. No: Meningeal Signs Respiratory/Chest: Present: Clear to Auscultation, Good Air Exchange. No: Respiratory Distress, Accessory Muscle Use Cardiovascular: Present: Regular Rate and Rhythm, Normal S1, S2. No: Murmurs Back: Present: Normal Inspection Upper Extremity: Present: Normal Inspection, Normal ROM. No: Cyanosis, Edema Lower Extremity: Present: Normal Inspection, Normal ROM. No: Edema Neurological: Present: GCS=15, CN II-XII Intact, Speech Normal, Motor Func Grossly Intact, Normal Sensory Function, Normal Cerebellar Funct, Gait Normal, Memory Normal Skin: Present: Warm, Dry, Normal Color. No: Rashes Psychiatric: Present: Alert, Oriented x 3, Normal Insight, Normal Concentration Medical Decision Making ED Course and Treatment: 11/20/16 00:55 Amoxicillin was not given to patient. Patient was given sample of Carafate justin. 11/20/16 00:57 Re-evaluation. Patient feels better. Discussed results and plan with patient who expresses understanding. All questions answered and there is agreement with the plan to discharge home with instructions. Patient stable for discharge. Return if symptoms persist or worsen. Re-evaluation Time: 00:57 Reassessment Condition: Re-examined, Improved - Medication Orders Current Medication Orders: Discontinued Medications Amoxicillin (Amoxil 500 Mg Cap) 500 mg PO STAT STA PRN Reason: Protocol Stop: 11/20/16 00:48 Last Admin: 11/20/16 00:55 Dose: Not Given Non-Admin Reason: Patient Refused Sucralfate (Carafate Oral Susp) 1 gm PO STAT STA Stop: 11/20/16 00:42 Last Admin: 11/20/16 00:55 Dose: 1 gm Disposition/Present on Arrival - Present on Arrival Any Indicators Present on Arrival: No History of DVT/PE: No History of Uncontrolled Diabetes: No Urinary Catheter: No History of Decub. Ulcer: No History Surgical Site Infection Following: None - Disposition Have Diagnosis and Disposition been Completed?: Yes Diagnosis: Aphthous ulcer of mouth Disposition: HOME/ ROUTINE Disposition Time: 00:57 Patient Plan: Discharge Condition: GOOD Discharge Instructions (ExitCare): Canker Sores (ED) Additional Instructions: Call private doctor for follow up visit in 1-2 days. Apply Carafate solution on the affected area with q-tips as needed. Return to emergency if symptoms worsen. Avoid using tooth paste that has Sodium Lauryl Sulfate as ingredient. See private dentist for further revaluation. Prescriptions: Sucralfate [Carafate Oral Susp] 1 applic PO DAILY #60 ml Referrals: [facility] [Outside] - Follow up with primary [facility] [Outside] - Follow up with primary Forms: [employer] ([place]ian)
== END 2016-11-20 01:20 | disposition home or self-care (01) ==
LOC: ED 00:29
DX: K12.0 Recurrent oral aphthae (principal)